=== PATIENT | female | born 1980 | race Hispanic/Latino ===

== ENCOUNTER 2017-10-30 14:27 | Emergency (ER) | payer SELFPAY ==
[2017-10-30] MEDS ORDERED: Dexamethasone 10 MG/ML VIAL ONE (16:08)
--- NOTE | 2017-10-30 17:06 | RAD ---
CHEST TWO VIEWS: 10/30/17 HISTORY: Cough. Congestion. Ear pain and sore throat. COMPARISON: 04/25/10. FINDINGS: Normal cardiac silhouette. The pulmonary vessels and hilum are normal. Costophrenic angles are clear. No masses or consolidation. No pneumothorax or osseous abnormality. IMPRESSION: No acute cardiopulmonary process. POS: OFF
== END 2017-10-30 17:14 | disposition home or self-care (01) ==
LOC: ERS 14:27
DX: J06.9 Acute upper respiratory infection, unspecified (principal)
CPT/HCPCS: 71046; 94640; J1100; J7620

== ENCOUNTER 2017-11-03 17:21 | Emergency (ER) | payer SELFPAY ==
[2017-11-03 19:56] LABS: #Basophils 0.1 thou/uL (0.0-0.2); #Eosinphils 0.2 thou/uL (0.0-0.7); #Monocytes 0.8 thou/uL (0.11-0.59); #Neutrophils 8.3 thou/uL (1.40-6.50); %Basophils 0.7 % (0.0-1.0); %Eosinophils 2.2 % (0.0-10.0); %Lymphocytes 17.3 % (21.0-51.0); %Monocytes 6.9 % (0.0-10.0); Hemoglobin 14.6 g/dL (12.0-16.0); Mean Corpuscular HGB CONC 35.3 g/dL (32.0-36.0); Mean Corpuscular Hemoglobin 33.2 pg (27.0-31.0); Mean Corpuscular Volume 94.1 fl (81.0-99.0); Mean Platelet Volume 9.4 fL (7.4-10.4); Platelet Count 253 thou/uL (130-400); RBC Distribution Width 11.3 % (11.5-14.5); White Blood Cell (WBC) Count 11.3 thou/uL (4.8-10.8)
[2017-11-03 20:08] LABS: ALT (SGPT) 14 U/L (8-55); AST (SGOT) 12 U/L (5-34); Albumin 4.2 g/dL (3.5-5.0); Alkaline Phosphatase 69 U/L (40-150); Anion Gap 12 mmol/L (10-20); BUN (Urea Nitrogen) 11 mg/dL (7.0-18.7); Bilirubin, Total 0.3 mg/dL (0.2-1.2); Calc. Creatinine Clearance 0 mL/min (70-130); Calcium 9.4 mg/dL (7.8-10.44); Carbon Dioxide 27 mmol/L (22-29); Chloride 104 mmol/L (98-107); Estimated GFR-MDRD Greater than 90; Globulin 2.9 g/dL (2.4-3.5); Glucose 97 mg/dL (70-105); Potassium 3.6 mmol/L (3.5-5.1); Protein, Total 7.1 g/dL (6.0-8.3); Sodium 139 mmol/L (136-145)
[2017-11-03] MEDS ORDERED: Ondansetron HCl/PF 4 MG/2 ML Vial ONE (20:08)
[2017-11-03] MEDS ORDERED: methylPREDNISolone Sod Succ/PF 125 MG/2 ML VIAL ONE (20:41)
[2017-11-03] MEDS ORDERED: Ketorolac Tromethamine 30 MG/ML VIAL ONE (20:51)
== END 2017-11-03 22:25 | disposition home or self-care (01) ==
LOC: ERS 17:21
DX: J45.901 Unspecified asthma with (acute) exacerbation (principal); R11.2 Nausea with vomiting, unspecified; Z79.52 Long term (current) use of systemic steroids; Z79.899 Other long term (current) drug therapy
CPT/HCPCS: 80053; 85025; 96361; 96374; 96375; J1885; J2270; J2405; J2930

== ENCOUNTER 2018-12-09 20:39 | Emergency (ER) | payer SELFPAY ==
[2018-12-09] MEDS ORDERED: predniSONE 20 MG TAB ONE (21:31)
== END 2018-12-09 22:05 | disposition home or self-care (01) ==
LOC: ERS 20:39
DX: J20.9 Acute bronchitis, unspecified (principal); J45.909 Unspecified asthma, uncomplicated
CPT/HCPCS: 94640; J7620

== ENCOUNTER 2019-09-08 07:19 | Emergency (ER) | payer SELFPAY ==
[2019-09-08] MEDS ORDERED: predniSONE 20 MG TAB ONE (08:08)
--- NOTE | 2019-09-08 08:12 | RAD ---
Exam: Chest 2 views HISTORY:Emergency exam Comparison: October 30, 2017 FINDINGS: Lungs: Mild bilateral perihilar interstitial prominence Cardiac silhouette: Normal size Pulmonary vessels: Normal Pleural Spaces: Clear Pneumothorax: None Osseous abnormalities: None of acuity. IMPRESSION: Bilateral perihilar interstitial prominence. Correlate for evidence of viral bronchioliti s.
== END 2019-09-08 08:40 | disposition home or self-care (01) ==
LOC: ERS 07:19
DX: R05 Cough (principal); R53.83 Other fatigue; J45.909 Unspecified asthma, uncomplicated; Z79.899 Other long term (current) drug therapy
CPT/HCPCS: 71046; 93005; 94640; J7512; J7620

== ENCOUNTER 2019-11-20 13:05 | Emergency (ER) | payer SELFPAY ==
[2019-11-20] MEDS ORDERED: Meclizine HCl 25 MG TAB ONE (14:53)
[2019-11-20] MEDS ORDERED: Ondansetron PF 4 MG/2 ML Vial ONE (14:53)
== END 2019-11-20 16:06 | disposition home or self-care (01) ==
LOC: ERS 13:05
DX: R42 Dizziness and giddiness (principal); J45.909 Unspecified asthma, uncomplicated
CPT/HCPCS: 96361; 96374; J2405; J8597

== ENCOUNTER 2021-02-13 16:11 | Emergency (ER) | payer SELFPAY ==
[2021-02-13] MEDS ORDERED: predniSONE 20 MG TAB ONE (16:39)
[2021-02-13] MEDS ORDERED: diphenhydrAMINE 25 MG CAP ONE (16:39)
== END 2021-02-13 17:13 | disposition home or self-care (01) ==
LOC: ERS 16:11
DX: T78.40XA Allergy, unspecified, initial encounter (principal); J45.909 Unspecified asthma, uncomplicated; Z87.891 Personal history of nicotine dependence
CPT/HCPCS: 99283; J7512; Q0163

== ENCOUNTER 2021-08-24 20:44 | Emergency (ER) | payer SELFPAY ==
[2021-08-24] MEDS ORDERED: Acetaminophen 500 MG TAB ONE (21:50)
[2021-08-24] MEDS ORDERED: Ibuprofen 200 MG TAB ONE (21:50)
[2021-08-24 22:27] LABS: SARS-CoV-2 NAA Rapid Test DETECTED (NotDetected)
== END 2021-08-25 00:02 | disposition home or self-care (01) ==
LOC: ERS 20:44
DX: U07.1 COVID-19 (principal); J45.909 Unspecified asthma, uncomplicated; Z87.891 Personal history of nicotine dependence
CPT/HCPCS: 0241U; 87081; 87430; 99283

== ENCOUNTER 2022-12-31 02:57 | Emergency (ER) | payer OTHER, SELFPAY ==
[2022-12-31 04:20] LABS: #Eosinphils 0.8 thou/uL (0.0-0.7); #Monocytes 0.9 thou/uL (0.11-0.59); #Neutrophils 8.8 thou/uL (1.40-6.50); %Basophils 0.4 % (0.0-1.0); %Eosinophils 6.3 % (0.0-10.0); %Lymphocytes 15.7 % (21.0-51.0); %Monocytes 7.2 % (0.0-10.0); %Neutrophils 70.5 % (42.0-75.0); Hemoglobin 13.5 g/dL (12.0-16.0); Mean Corpuscular HGB CONC 34.7 g/dL (32.0-36.0); Mean Corpuscular Hemoglobin 31.3 pg (27.0-31.0); Mean Corpuscular Volume 90.4 fl (78.0-98.0); Mean Platelet Volume 9.8 fL (7.4-10.4); Platelet Count 239 10x3/uL (130-400); RBC Distribution Width 11.9 % (11.5-14.5); Red Blood Cell (RBC) Count 4.32 mill/uL (4.20-5.40); White Blood Cell (WBC) Count 12.5 10x3/uL (4.8-10.8)
[2022-12-31 04:23] LABS: BHCG - Serum Negative (NEGATIVE); Pregs Control Background? CLEAR/WHITE (CLR/WHITE); Pregs Control Bar Appear? YES (CONTROL BAR)
[2022-12-31 04:37] LABS: ALT (SGPT) 42 U/L (8-55); AST (SGOT) 21 U/L (5-34); Albumin 3.9 g/dL (3.5-5.0); Alkaline Phosphatase 75 U/L (40-110); Anion Gap 12 mmol/L (10-20); BUN (Urea Nitrogen) 11 mg/dL (7.0-18.7); Bilirubin, Total 0.3 mg/dL (0.2-1.2); Calc. Creatinine Clearance 0 mL/min (70-130); Calcium 9.4 mg/dL (7.8-10.44); Carbon Dioxide 26 mmol/L (22-29); Chloride 104 mmol/L (98-107); Estimated GFR 90; Globulin 3.1 g/dL (2.4-3.5); Glucose 126 mg/dL (70-105); Potassium 4.3 mmol/L (3.5-5.1); Sodium 138 mmol/L (136-145)
[2022-12-31] MEDS ORDERED: Ipratropium/Albuterol 3 ML NEB ONE (05:41)
== END 2022-12-31 06:05 | disposition home or self-care (01) ==
LOC: ERS 02:57
DX: J98.9 Respiratory disorder, unspecified (principal); Z87.891 Personal history of nicotine dependence
CPT/HCPCS: 36415; 71045; 80053; 84484; 84703; 85025; 93005; J7620

== ENCOUNTER 2023-10-14 19:54 | Emergency (ER) | payer SELFPAY ==
[2023-10-14] MEDS ORDERED: predniSONE 20 MG TAB ONE (20:45)
[2023-10-14 21:24] LABS: SARS-CoV-2 NAA Rapid Test Not Detected (NotDetected)
== END 2023-10-14 21:44 | disposition home or self-care (01) ==
LOC: ERS 19:54
DX: J10.1 Influenza due to other identified influenza virus with other respiratory manifestations (principal); J45.909 Unspecified asthma, uncomplicated; F10.90 Alcohol use, unspecified, uncomplicated
CPT/HCPCS: 71045; 99285; J7512

== ENCOUNTER 2024-07-28 17:37 | Emergency (ER) | payer SELFPAY ==
[2024-07-28] MEDS ORDERED: Ibuprofen 800 MG TAB ONE (18:19)
[2024-07-28] MEDS ORDERED: Cyclobenzaprine 10 MG TAB ONE (18:19)
[2024-07-28 18:58] LABS: Hematocrit 40.1 % (36.0-47.0); Hemoglobin 13.5 g/dL (12.0-16.0); Mean Corpuscular HGB CONC 33.7 g/dL (32.0-36.0); Mean Corpuscular Hemoglobin 30.3 pg (27.0-31.0); Mean Corpuscular Volume 89.9 fL (78.0-98.0); Mean Platelet Volume 11.3 fL (7.4-10.4); Platelet Count 218 10x3/uL (130-400); RBC Distribution Width 12.5 % (11.5-14.5); Red Blood Cell (RBC) Count 4.46 mill/uL (4.20-5.40)
[2024-07-28 19:24] LABS: Band 3 % (5-11); Eosinophils 1 % (0-10); Lymphocytes 13 % (21-51); Monocytes 6 % (0-10); Neutrophil 75 % (42-75); Platelet Adequacy Comment Platelets Normal; Reactive Lymphocytes 1 % (0-10)
[2024-07-28 19:29] LABS: ALT (SGPT) 22 U/L (8-55); AST (SGOT) 18 U/L (5-34); Albumin 3.6 g/dL (3.5-5.0); Alkaline Phosphatase 67 U/L (40-110); Anion Gap 11 mmol/L (10-20); BUN (Urea Nitrogen) 7 mg/dL (7.0-18.7); Bilirubin, Total 0.3 mg/dL (0.2-1.2); CK (CPK) 92 U/L (29-168); Calc. Creatinine Clearance 0 mL/min (70-130); Calcium 8.9 mg/dL (7.8-10.44); Carbon Dioxide 24 mmol/L (22-29); Chloride 106 mmol/L (98-107); Estimated GFR 96; Globulin 3.4 g/dL (2.4-3.5); Glucose 92 mg/dL (70-105); Potassium 4.2 mmol/L (3.5-5.1); Sodium 137 mmol/L (136-145)
== END 2024-07-28 19:47 | disposition home or self-care (01) ==
LOC: ERS 17:37
DX: S80.11XA Contusion of right lower leg, initial encounter (principal); W54.8XXA Other contact with dog, initial encounter
CPT/HCPCS: 36415; 80053; 82550; 85025; 85379; 99283